=== PATIENT | female | born 1935 | race Caucasian/White ===

== ENCOUNTER 2025-03-07 10:55 | Emergency (ER) | payer MEDICARE, BC, MEDICAID ==
[2025-03-07] MEDS: Ketorolac 30 MG/ML SDV IM ONE (12:53)
== END 2025-03-07 13:52 | disposition home or self-care (01) ==
LOC: JD.ED 10:55
DX: M16.12 Unilateral primary osteoarthritis, left hip (principal); I11.0 Hypertensive heart disease with heart failure; I50.9 Heart failure, unspecified; E11.9 Type 2 diabetes mellitus without complications; E78.00 Pure hypercholesterolemia, unspecified; E66.9 Obesity, unspecified; Z79.899 Other long term (current) drug therapy; Z68.42 Body mass index [BMI] 45.0-49.9, adult
CPT/HCPCS: 73502; 96372; 99283; J1885